=== PATIENT | male | born 1995 | race African-American/Black ===

== ENCOUNTER 2024-10-31 09:31 | Emergency (ER) | payer OTHER, SELFPAY ==
[2024-10-31 09:34] VITALS: BP 153/92
[2024-10-31 10:16] LABS: % Basophils 0.3 % (0-2); % Eosinophils 0.1 % (0-6); % Immature Granulocytes 0.2 % (0-0.5); % Lymphocytes 30.5 % (20.5-51.1); % Monocytes 15.5 % (1.7-9.3); % Neutrophils 53.4 % (42.2-75.2); Absolute Lymphocytes 2.9 10^3/uL (1.2-3.4); Absolute Monocytes 1.5 10^3/uL (0.1-0.6); Hematocrit 50.5 % (39.0-52.0); Hemoglobin 17.2 g/dL (13.0-18.0); Mean Corp Hgb Conc. 34.1 g/dL (33.0-37.0); Mean Corpuscular Hgb 28.2 pg (27.0-31.0); Mean Corpuscular Volume 82.9 fL (80.0-94.0); Mean Platelet Volume 8.8 fL (7.4-10.4); Nucleated Red Blood Cells % 0 % (-); Platelet Count 208 10^3/uL (130-400); Red Blood Cell Count 6.09 10^6/uL (4.70-6.10); Red Cell Dist. Width 13.4 % (11.5-14.5); White Blood Cell Count 9.4 10^3/uL (4.8-10.8)
[2024-10-31 10:32] LABS: Monotest Positive (Negative)
[2024-10-31 10:37] LABS: ALT (SGPT) 32 U/L (0-50); AST (SGOT) 33 U/L (17-59); Albumin 4.8 g/dl (3.5-5.0); Alkaline Phosphatase 79 U/L (38-126); Blood Urea Nitrogen 12 mg/dl (9-20); Calcium 9.5 mg/dl (8.4-10.2); Carbon Dioxide 17 mmol/L (22-30); Chloride 102 mmol/L (98-107); Glucose 93 mg/dl (70-99); Potassium 4.4 mmol/L (3.5-5.1); Sodium 140 mmol/L (135-145); Total Bilirubin 0.6 mg/dl (0.2-1.3); Total Protein 8.8 g/dl (6.3-8.2); eGFR > 60.00
[2024-10-31 10:42] LABS: COVID-19 Antigen Negative (Negative)
--- NOTE | 2024-10-31 11:30 | ED.GENMED ---
History of Present Illness
General
Chief Complaint: Throat Problem
Source: patient
Exam Limitations: none
Time Seen by Provider: 10/31/24 11:19
Nursing documentation reviewed up to this point in time: agreed with
History of Present Illness
History of Present Illness:
Patient presents to ED secondary to 2-day history of sore throat, headache, body ache, and decreased appetite. Denies fever. Denies chills. Denies nausea, vomiting, or diarrhea. Denies rash. Denies recent travel. Denies sick contact. Denies
coughing. Patient does report painful swallowing sensation. Denies chest pain or shortness of breath.
Review of Systems
Review of Systems
Allergies reviewed?: Yes
All Other Systems: ROS reviewed and negative except as documented in HPI and ROS
Constitutional: Denies fever
EENT: Reports sore throat; Denies runny nose
Respiratory: Reports no symptoms; Denies cough or trouble breathing
Cardiac: Reports no symptoms
ABD/GI: Reports no symptoms; Denies vomiting or diarrhea
Musculoskeletal: Reports muscle pain
Skin: Reports no symptoms
Neurological: Reports headache
Phy Exam
Physical Exam
Physical Exam:
Physical Exam
General: no apparent distress, not acutely ill. afebrile
Head: nc/at. eomi
Neck: supple. no meningeal signs - negative Kernig's and Brudzinski sign. erythematous pharynx noted without exudates/swelling. negative anterior lymphadenopathy.
Heart: s1/s2 regular rate and rhythm, no murmur. equal radial pulses.
Lungs: no acute respiratory distress. clear bilaterally
Abdomen: normal bowel sounds. not tender. no distention
Neuro: alert and oriented x 3. no focal neurological deficits
Skin: no rash
Psychiatric: well kept. interactive and cooperative
Extremities: no edema. no calf tenderness.
Course
Orders/Labs/Results
Orders:
Orders
10/31/24 09:38
EKG [Electrocardiogram (*1)] Urgent
Reason for Study: Abdominal Pain
EKG- Treatment ONCE
10/31/24 09:47
COVID-19 Antigen Urgent
Source: Nasal Swab
Complete Blood Count/With Diff Urgent
Comprehensive Metabolic Panel Urgent
Monotest Urgent
Influenza A+B Rapid Molecular Urgent
ANGELLA Source: Nasal Swab
Specimen Description:
10/31/24 11:29
Dexamethasone Pf [Decadron] 10 mg PO NOW STA
Ibuprofen [Motrin] 400 mg PO NOW STA
Abnormal Lab Results
10/31/24
09:47
Absolute Monos (auto) 1.5 H 10^3/uL
(0.1-0.6)
Monocytes % 15.5 H %
(1.7-9.3)
Carbon Dioxide 17 L mmol/L
(22-30)
Total Protein 8.8 H g/dl
(6.3-8.2)
Monoscreen Positive A
(Negative)
10/31/24 09:47
10/31/24 09:47
Vital Signs
Initial and Last Documented VS:
Initial Vital Signs
Temp Pulse Resp BP Pulse Ox
98.5 F 115 18 153/92 98
10/31/24 09:34 10/31/24 09:34 10/31/24 09:34 10/31/24 09:34 10/31/24 09:34
Last Documented Vital Signs
Temp Pulse Resp BP Pulse Ox
98.5 F 115 18 153/92 98
10/31/24 09:34 10/31/24 09:34 10/31/24 09:34 10/31/24 09:34 10/31/24 09:34
MDM/Problems Addressed
MDM/Problems Addressed:
History, exam, and blood work, consistent with symptoms secondary to mononucleosis. Otherwise, patient is afebrile, helically stable, and nontoxic-appearing. Patient will be given 1 dose of Decadron for symptomatic relief, along with
recommendation to continue hydration at home along with NSAIDs. Advised to follow-up with PCP for reevaluation or return to ED with worsening symptoms.
*Critical Care Note
Total Time (30-74mins, 75-104mins- exclusive of procedures): Not Applicable
ED Attending Note
-
Portions of this chart may have been created with voice recognition software.� Occasional wrong word or��sound alike� substitutions may have occurred due to the inherent limitations of voice recognition software.
Discharge Plan
Departure
Patient Disposition: Home (Routine Discharge)
Date of Disposition: 10/31/24
Time of Disposition: 11:35
Patient with high blood pressure during this ER visit?: Yes
Condition: Good
Discharge Problem:
Mononucleosis
Instructions: Mononucleosis (DC)
Referrals:
UNKNOWN - PT DOES,NOT KNOW [Family Provider] -
Stand Alone Forms: Return to Work
Activity Restrictions/Additional Instructions:
As discussed, please follow-up with your primary care physician with any further concerns, or consider return to ED with worsening symptoms.
Interventions
Interventions:
*Risk Screen - Suicide Last Done: 10/31/24 09:34
*General Assessment Last Done: 10/31/24 09:34
*Neglect/Abuse Screening Last Done: 10/31/24 09:34
ED- Fall Risk Assessment Last Done: 10/31/24 11:24
*ED COVID-19 Vaccine History Last Done: 10/31/24 09:34
*Nursing Disposition Last Done: 10/31/24 12:12
ED-EENT Assessment Last Done: 10/31/24 11:24
ED- Pulmonary Assessment Last Done: 10/31/24 11:24
Discharge Date and Time
Discharge Date/Time: 10/31/24 12:28
Print Language: MALAYSIAN
[2024-10-31 12:06] VITALS: BMI 32.9
[2024-10-31] MEDS: MOTRIN 400 MG PO (12:06)
[2024-10-31] MEDS: DECADRON 10 MG PO (12:07)
== END 2024-10-31 12:28 | disposition home or self-care (01) ==
LOC: EMR 09:31
PROVIDERS: Emergency Medicine; EMERGENCY PHYSICIAN Emergency Medicine
DX: B27.90 Infectious mononucleosis, unspecified without complication (principal)
CPT/HCPCS: 99284; 80053; 85025; 86308; 87502; 87811; 93005